=== PATIENT | female | born 1995 | race African-American/Black ===

== ENCOUNTER 2016-10-02 12:49 | Emergency (ER) | payer MEDICAID ==
[2016-10-02 12:58] VITALS: RESP 16; O2SAT 97
[2016-10-02] MEDS ORDERED: FLUORESCEIN SODIUM 1 MG STRIP OP ONE ×3 (13:34→13:36)
[2016-10-02] MEDS ORDERED: PROPARACAINE 0.5% 15 ML OPHT DROP ONE (13:34)
[2016-10-02] MEDS ORDERED: PROPARACAINE 0.5% 15 ML OPHT DROP EACHEYE ONE (13:36)
[2016-10-02] MEDS ORDERED: CIPROFLOXACIN 0.3% DROPS PREPACK OPHT.BTL TAKEHOME ONE (14:15)
--- NOTE | 2016-10-02 14:16 | EDPHY ---
H & P Time Seen by Provider: 10/02/16 13:27 HPI/ROS: CHIEF COMPLAINT: Eye redness HISTORY OF PRESENT ILLNESS: Patient is a 21-year-old female who presents emergency department with bilateral eye redness. Her symptoms started few days ago. She has had increased redness and itchiness. She has mild photophobia. She has had no discharge. No trauma. She does not wear contact lenses. No other illnesses. She denies fevers or chills. Her vision is unchanged. REVIEW OF SYSTEMS: My complete review of systems is negative except as mentioned in the HPI. Past Medical/Surgical History: Negative Past surgical history: Noncontributory Smoking Status: Never smoked Physical Exam: GENERAL: Well-appearing, in no acute distress, alert. Visual acuity: Noted. Eyelids: Normal inspection, everted for exam. Conjunctiva and sclera: Injected. No foreign material. No subconjunctival hemorrhage. No exudate. Not injected. Corneas: Normal inspection. Examined with fluorescein dye: No uptake, abrasion, or ulcer. EOMs: Intact. Pupils: PERRL, normal accommodation. Anterior chambers: Normal inspection. No hyphema. No cells or flare. Posterior segments: Normal funduscopic exam Constitutional: Initial Vital Signs Temperature (C) 36.6 C 10/02/16 12:56 Heart Rate 73 10/02/16 12:56 Respiratory Rate 16 10/02/16 12:56 Blood Pressure 117/76 10/02/16 12:56 O2 Sat (%) 97 10/02/16 12:56 O2 Delivery Mode Room Air Allergies/Adverse Reactions: No Known Allergies Allergy (Unverified 10/02/16 12:56) Home Medications: Medication Instructions Recorded NK [No Known Home Meds] 10/02/16 Medical Decision Making ED Course/Re-evaluation: In the emergency department I discussed possible etiologies with the patient. I called Dr. Hutchison arrange close follow-up. The patient will be given ciprofloxacin drops. She is given warnings prior to leaving. She will return with worsening symptoms. Differential Diagnosis: My differential includes but is not limited to viral conjunctivitis, bacterial conjunctivitis, iritis, cellulitis, pre orbital cellulitis, orbital cellulitis - Data Points Medications Given: Discontinued Medications Ciprofloxacin (Ciloxan 0.3% Opht Drops Prepack) 1 btl [facility] EDNOW ONE Stop: 10/02/16 14:16 Last Admin: 10/02/16 14:30 Dose: 1 btl Fluorescein Sodium ([id number]) 2 mg OP EDNOW ONE Stop: 10/02/16 13:37 Last Admin: 10/02/16 13:38 Dose: 2 mg Proparacaine HCl (Alcaine 0.5%) 1 drops EACHEYE ONCE ONE Stop: 10/02/16 13:37 Last Admin: 10/02/16 13:38 Dose: 1 drop Departure - Departure Disposition: Home, Routine, Self-Care Clinical Impression: Acute conjunctivitis of both eyes Qualifiers: Acute conjunctivitis type: unspecified Qualified Code(s): H10.33 - Unspecified acute conjunctivitis, bilateral Condition: Good Instructions: Conjunctivitis (ED) Additional Instructions: You need close follow-up with Ophthalmology. Call to make appointment. Apply 2 drops to both eyes every 2 hours while awake for the next 3 days. Referrals: Jair Hutchison MD [Medical Doctor] - 3-4 days, if not improved
[2016-10-02 14:38] VITALS: BP 92/60; PULSE 72; TEMP 98.6
== END 2016-10-02 14:38 | disposition home or self-care (01) ==
DX: H10.33 Unspecified acute conjunctivitis, bilateral (principal)